=== PATIENT | female | born 1985 | race Caucasian/White ===

== ENCOUNTER 2016-09-27 18:45 | Emergency (ER) | payer BC ==
[~2016-09-27 18:45] MED LIST: Coumadin PO; GLUCOPHAGE1000 MG PO; LANTUS SC; NEUR400 PO; PERCOCET1 TA2 PO; SYN1 PO
== END 2016-09-27 21:13 | disposition home or self-care (01) ==
LOC: ER 18:45
DX: S93.402A Sprain of unspecified ligament of left ankle, initial encounter (principal); S83.92XA Sprain of unspecified site of left knee, initial encounter; E10.9 Type 1 diabetes mellitus without complications; Z79.84 Long term (current) use of oral hypoglycemic drugs; Z79.4 Long term (current) use of insulin; Z79.899 Other long term (current) drug therapy; Z88.8 Allergy status to other drugs, medicaments and biological substances; X58.XXXA Exposure to other specified factors, initial encounter
CPT/HCPCS: 73560-LT; 73610-LT; 99284; A9270-GY